=== PATIENT | female | born 1980 | race American Indian/Alaskan Native ===

== ENCOUNTER 2018-01-12 13:55 | Emergency (ER) | payer MEDICARE ==
[2018-01-12 14:16] VITALS: BP 140/70
--- NOTE | 2018-01-12 15:10 | XRay Report ---
ROUTINE CHEST, TWO VIEWS: HISTORY: Shortness of breath. The trachea, heart, mediastinal contour, lung moore and bony thorax are unremarkable. IMPRESSION: Unremarkable chest x-ray.
[2018-01-12 15:50] LABS: Basophils % (Auto) 0.5 % (0.0-1.8); Eosinophils # (Auto) 0.1 K/mm3 (0.0-0.4); Eosinophils % (Auto) 2.9 % (0.0-4.3); Hematocrit 36.7 % (30.3-42.9); Lymphocytes % (Auto) 21.3 % (13.4-35.0); Mean Corpuscular HGB Conc 33 % (30-34); Mean Corpuscular Hemoglobin 27 pg (28-32); Mean Corpuscular Volume 81 fl (79-97); Monocytes # (Auto) 0.6 K/mm3 (0.0-0.8); Monocytes % (Auto) 11.7 % (0.0-7.3); Platelet Count 383 K/mm3 (140-440); Red Blood Count 4.52 M/mm3 (3.65-5.03); Red Cell Distribution Width 14.3 % (13.2-15.2)
[2018-01-12 15:58] LABS: BUN/Creatinine Ratio 16; Blood Urea Nitrogen 11 mg/dL (7-17); Calcium 9.6 mg/dL (8.4-10.2); Hemolysis Index 2
[2018-01-12] MEDS ORDERED: ULTRAM PO ONE (16:15)
--- NOTE | 2018-01-12 16:23 | Emergency Department Report ---
HPI - General Chief Complaint: Dyspnea/Respdistress Time Seen by Provider: 01/12/18 15:55 - HPI HPI: The patient is a 37-year-old female with a history of COPD, CHF, and DM, whom presents for evaluation of chest pain and shortness of breath for the past 2 days. She states that her chest pain is aching in quality, right sided, currently mild in severity, exacerbated with coughing, improved at rest. The patient denies fever, trauma to the chest, syncope, hemoptysis, unilateral leg swelling, oral contraceptive use, recent immobilization, history of DVT or PE, hxcancer. ED Past Medical Hx - Past Medical History Previous Medical History?: Yes Hx Hypertension: Yes Hx Congestive Heart Failure: Yes Hx Diabetes: Yes Hx GERD: Yes Hx Asthma: Yes (2nd to mole in house) Hx COPD: No Hx HIV: No - Surgical History Past Surgical History?: Yes Hx Coronary Stent: Yes (x2) Hx Cholecystectomy: Yes - Social History Smoking Status: Never Smoker Substance Use Type: Prescribed - Medications Home Medications: Home Medications Medication Instructions Recorded Confirmed Last Taken Type Albuterol Sulfate [Proair 90 mcg IH PRN 10/11/15 04/01/16 03/24/16 History Respiclick] Aspirin EC [Aspirin Enteric Coated 325 mg PO QDAY 10/11/15 04/01/16 03/31/16 History TAB] Furosemide 40 mg PO DAILY 10/11/15 04/01/16 03/31/16 History Insulin Aspart [NovoLOG 100 40 units SQ TID 10/11/15 04/01/16 03/31/16 History UNITS/ML VIAL] Insulin Detemir [Levemir VIAL] 45 unit SQ QHS 03/31/16 03/31/16 03/30/16 History metFORMIN [Glucophage] 1,000 mg PO QDAY 03/31/16 03/31/16 03/31/16 History Clindamycin [Clindamycin CAP] 450 mg PO Q8HR #90 capsule 04/04/16 Unknown Rx ALBUTEROL Inhaler [ProAir HFA 2 puff IH QID PRN #1 inhalation 01/12/18 Unknown Rx Inhaler] predniSONE [Deltasone] 20 mg PO QDAY #5 tab 01/12/18 Unknown Rx traMADol [Ultram 50 MG tab] 50 mg PO Q6HR PRN #10 tablet 01/12/18 Unknown Rx ED Review of Systems ROS: Stated complaint: CP/SOB/DIZZY Other details as noted in HPI Constitutional: denies: fever ENT: denies: throat or neck pain Respiratory: denies: cough, shortness of breath Cardiovascular: reports: chest pain Endocrine: denies unexplained weight loss or gain Gastrointestinal: denies: abdominal pain, nausea Genitourinary: denies: dysuria Musculoskeletal: denies: leg swelling Skin: denies: rash Neurological: denies: headache Hematological/Lymphatic: denies: easy bleeding or easy bruising Psych: denies sadness or hopelessness Physical Exam - Physical Exam Vital Signs: Vital Signs 01/12/18 14:13 Temperature 98.2 F Pulse Rate 102 H Respiratory 20 Rate Blood Pressure 140/70 O2 Sat by Pulse 97 Oximetry Physical Exam: General: well-nourished, well-developed, no acute distress Head: Normocephalic, atraumatic Eyes: normal sclera ENT: Mucous membranes are pale and dry Neck: trachea midline, neck supple, No neck stiffness, no cervical adenopathy Respiratory: Mildly diminished apical breath sounds and expiratory wheezing present, no costal retractions, no respiratory distress Cardio: S1 and S2 present, no murmurs, rubs, gallops, capillary refill is delayed Abdomen: Normoactive bowel sounds, soft abdomen, no rigidity, no guarding or rebound tenderness Musc: No pitting edema Skin: No rash Neuro: no facial drooping, normal speech Psych: Normal affect ED Course Vital Signs 01/12/18 14:13 Temperature 98.2 F Pulse Rate 102 H Respiratory 20 Rate Blood Pressure 140/70 O2 Sat by Pulse 97 Oximetry ED Medical Decision Making - Lab Data Result diagrams: 01/12/18 15:30 01/12/18 15:30 - Medical Decision Making The patient was seen and examined by myself. The patient is placed on a nurse monitoring and continuous pulse ox. On initial evaluation, the patient was found to be in no distress. EKG was negative for findings suggestive of acute cardiac infarct. Labs and imaging are obtained. The patient given a tablet of trauma for pain. Chest x-ray is negative for pneumothorax, focal consolidation, pulmonary vascular congestion, pleural effusion, or other obvious acute cardiopulmonary disease process. Lab results exhibited mild hyperglycemia, glucose 290, normal anion gap and bicarbonate, not consistent with DKA, and otherwise labs were unremarkable including levels of troponin, WBC, hemoglobin, hematocrit, renal function. The patient was reevaluated and reported that their symptoms were markedly improved. As the patient has a JOESPH risk score less than 2, and a well's score less than 2, the patient is at low risk of ACS or pulmonary emboli etiology of their symptoms. The patient is stable for discharge with outpatient follow-up. She is given a prescription for steroids for treatment of COPD exacerbation. The patient is given follow-up and return instructions . The patient expressed understanding and agreed with the plan. The patient is discharged in stable condition. Critical care attestation.: If time is entered above; I have spent that time in minutes in the direct care of this critically ill patient, excluding procedure time. ED Disposition Clinical Impression: Acute chest pain, COPD with acute exacerbation, Acute hyperglycemia, Dehydration Disposition: DC-01 TO HOME OR SELFCARE Is pt being admited?: No Does the pt Need Aspirin: No Condition: Stable Instructions: Chest Pain (ED), Chronic Obstructive Pulmonary Disease (ED), Costochondritis (ED) Referrals: PRIMARY CAREMD [Primary Care Provider] - 3-5 Days Time of Disposition: 16:22
== END 2018-01-12 16:33 | disposition home or self-care (01) ==
LOC: ED 13:55
DX: J44.1 Chronic obstructive pulmonary disease with (acute) exacerbation (principal); E86.0 Dehydration; E11.65 Type 2 diabetes mellitus with hyperglycemia; I11.0 Hypertensive heart disease with heart failure; I50.9 Heart failure, unspecified; K21.9 Gastro-esophageal reflux disease without esophagitis; Z79.4 Long term (current) use of insulin; Z79.82 Long term (current) use of aspirin
CPT/HCPCS: 36415; 71046; 80048; 84484; 85025; 93005; 93010; 99284